=== PATIENT | male | born 1985 | race Caucasian/White ===

== ENCOUNTER 2016-09-18 15:18 | Emergency (ER) | payer OTHER ==
[2016-09-18 15:37] VITALS: BP 143/72
--- NOTE | 2016-09-18 15:46 | EDM.PDOC ---
ED HISTORY OF PRESENT ILLNESS - General Chief Complaint: Respiratory Problem Time Seen by Provider: 09/18/16 15:26 Source of Information: Reports: Patient History Limitations: Reports: No limitations - History of Present Illness INITIAL COMMENTS - FREE TEXT/NARRATIVE: Patient presents with nausea, headache and lightheadedness. He is concerned that he was exposed to too much carbon monoxide. About 5 hours ago he started cutting siding in his basement with a gas-powered saw. He was aware of the risks so opened all the basement windows as well as upstairs windows of his house. He was using the saw from 1030 to 1200 (1.5 hours). At noon he went upstairs for lunch and afterward started feeling not good. He denies LOC, vomiting, confusion. - Related Data Allergies/ADRs: Allergies Allergy/AdvReac Type Severity Reaction Status Date / Time No Known Drug Allergies Allergy Cannot Verified 09/18/16 15:31 Remember Home Meds: Home Meds . [No Known Home Meds] 09/18/16 [History] ED ROS GENERAL - Review of Systems Review Of Systems: See Below Constitutional: Reports: malaise. Denies: fever, chills HEENT: Denies: Throat pain, Vision change Respiratory: Denies: Shortness of Breath, Wheezing, Cough Cardiovascular: Reports: Lightheadedness. Denies: Chest pain, Syncope GI/Abdominal: Reports: Nausea. Denies: Abdominal pain, Diarrhea, Vomiting : Reports: no symptoms Musculoskeletal: Reports: no symptoms Skin: Reports: no symptoms Neurological: Reports: Headache. Denies: Confusion, Dizziness, Seizure, Syncope , Trouble Speaking, Difficulty Walking Psychiatric: Denies: Agitation, Anxiety, Confusion ED EXAM, GENERAL - Physical Exam Exam: See Below Exam Limited By: No limitations General Appearance: alert, WD/WN, no apparent distress Eye Exam: bilateral eye: EOMI, normal inspection, PERRL Ears: normal external exam, hearing grossly normal Nose: normal inspection. No: nasal drainage Throat/Mouth: Normal lips, Normal voice, No airway compromise Head: atraumatic, normocephalic Neck: full range of motion Respiratory/Chest: no respiratory distress, lungs clear, normal breath sounds, no accessory muscle use Cardiovascular: regular rate, rhythm, no murmur GI/Abdominal: no distention Back Exam: normal inspection, full range of motion Extremities: normal inspection, normal range of motion Neurological: alert, oriented, CN II-XII intact, normal cognition, no motor/ sensory deficits Psychiatric: normal affect, normal mood Skin Exam: Warm, Dry, Intact, Normal color, No rash Course - Vital Signs Last Recorded V/S: Last Vital Signs Temp 97.4 F 09/18/16 15:25 Pulse 65 09/18/16 15:25 Resp 16 09/18/16 15:25 BP 143/72 H 09/18/16 15:25 Pulse Ox 100 09/18/16 15:25 - Orders/Labs/Meds Labs: Laboratory Tests 09/18/16 09/18/16 09/18/16 Range/Units 15:50 15:50 15:50 WBC 11.1 H (5.0-10.0) 10^3/uL RBC 4.67 (4.50-6.00) 10^6/uL Hgb 13.9 (13.0-17.0) g/dL Hct 40.9 (40.0-52.0) % MCV 87.5 (82.0-92.0) fL MCH 29.8 (27.0-31.0) pg MCHC 34.0 (32.0-36.0) g/dL RDW 12.5 (11.5-14.5) % Plt Count 247 (150-300) 10^3/uL MPV 8.8 (7.4-10.4) fL Neut % (Auto) 78.1 H (50.0-70.0) % Lymph % (Auto) 12.7 L (20.0-40.0) % Milam % (Auto) 7.5 (2.0-8.0) % Eos % (Auto) 1.2 (1.0-3.0) % Baso % (Auto) 0.5 (0.0-1.0) % Neut # (Auto) 8.7 H (2.5-7.0) 10^3/uL Lymph # (Auto) 1.4 (1.0-4.0) 10^3/uL Milam # (Auto) 0.8 (0.1-0.8) 10^3/uL Eos # (Auto) 0.1 (0.1-0.3) 10^3/uL Baso # (Auto) 0.1 (0.0-0.1) 10^3/uL ABG pH 7.41 (7.35-7.45) ABG pCO2 43 (35-45) mmHG ABG pO2 409 H (80-105) mmHG ABG HCO3 27.0 H (22-26) mmol/L ABG Total CO2 28 H (23-27) mmol/L ABG O2 Saturation 100 H (95-98) % ABG Base Excess 2 (-2-3) mmol/L O2 Delivery Device Non rebr mask Oxygen Flow Rate 15 L/min Sodium 134 L (136-145) mmol/L Potassium 4.0 (3.3-5.3) mmol/L Chloride 98 (98-115) mmol/L Carbon Dioxide 29.5 (21.0-32.0) mmol/L BUN 23 (6-25) mg/dL Creatinine 0.92 (0.51-1.17) mg/dL Est Cr Clr Drug Dosing 134.02 mL/min Estimated GFR (MDRD) > 60 mL/min Glucose 98 (70-110) mg/dL Calcium 9.1 (8.7-10.3) mg/dL Meds: Medications Discontinued Medications Generic Name Dose Route Start Last Admin Trade Name Freq PRN Reason Stop Dose Admin Ondansetron HCl 4 mg 09/18/16 16:31 09/18/16 16:34 Zofran Odt PO 09/18/16 16:32 4 mg ONETIME ONE Administration - Re-Assessments/Exams Free Text/Narrative Re-Assessment/Exam: 09/18/16 16:00 I discussed case with García Witt. We will send out the carboxyhemoglobin test since we don't have it in-house and also draw ABG. Patient is on 15 liters of oxygen via non-rebreather mask. He says the headache seems to be improving a little. 09/18/16 17:59 Patient has been on oxygen NRBR for 2.5 hours and feels "100% better". The headache and nausea are gone and he just feels tired right now. He feels ready to go home. We discussed expectations and treatment plan and he was discharged in stable condition. Departure - Departure Time of Disposition: 17:54 Disposition: Home, Self-Care 01 Condition: good Clinical Impression: Carbon monoxide poisoning Qualifiers: Encounter type: initial encounter Injury intent: accidental or unintentional Qualified Code(s): T58.91XA - Toxic effect of carbon monoxide from unspecified source, accidental (unintentional), initial encounter Forms: ED Department Discharge Additional Instructions: 1. Make sure you have completely ventilated the house and basement before you and your family close up windows. 2. If you have recurrence of your symptoms: headache, nausea, etc, return to ER. 3. Follow up with your PCP if you aren't completely returning back to usual.
[2016-09-18 15:58] LABS: BASE EXCESS ARTERIAL 2 mmol/L (-2-3); O2 DELIVERY DEVICE NON REBR MASK; O2 SATURATION ARTERIAL 100 % (95-98); PCO2 ARTERIAL 43 mmHG (35-45); PO2 ARTERIAL 409 mmHG (80-105)
[2016-09-18 16:06] LABS: O2 FLOW RATE 15 L/min
[2016-09-18 16:19] LABS: CHLORIDE,CL 98 mmol/L (98-115); SODIUM,NA 134 mmol/L (136-145)
[2016-09-18] MEDS ORDERED: Ondansetron 4 MG Tab.DIS PO ONE (16:31)
== END 2016-09-18 18:10 | disposition home or self-care (01) ==
LOC: KA.ED 15:18
DX: T58.91XA Toxic effect of carbon monoxide from unspecified source, accidental (unintentional), initial encounter (principal)
CPT/HCPCS: 36600; 80048; 82375; 82803; 85025; 99283; A9270; 36415